=== PATIENT | male | born 1965 | race American Indian/Alaskan Native ===

== ENCOUNTER 2021-12-07 09:52 | Outpatient (CLI) | payer OTHER | END 2021-12-07 09:53 | disposition home or self-care (01) | LOC: CSHMRI 09:52 | PROVIDERS: ATTEND Radiology Radiation Oncology | DX: C61 Malignant neoplasm of prostate (principal) | CPT/HCPCS: 72197 ==

== ENCOUNTER 2022-01-03 11:16 | Outpatient (CLI) | payer OTHER | END 2022-01-03 11:17 | disposition home or self-care (01) | LOC: CSHLAB 11:16 | PROVIDERS: ATTEND Internal Medicine Gastroenterology | DX: Z20.822 Contact with and (suspected) exposure to COVID-19 (principal); Z12.11 Encounter for screening for malignant neoplasm of colon | CPT/HCPCS: U0003; U0005 ==

== ENCOUNTER 2022-01-06 07:54 | Day surgery (SDC) | payer OTHER ==
[2022-01-05 14:47] VITALS: BMI 46.5
[2022-01-06] MEDS ORDERED: Lidocaine 1% MPF 2 ML VIAL ONE (08:52)
[2022-01-06] MEDS ORDERED: PROPOFOL 40 ML ONE (09:54)
[2022-01-06] MEDS ORDERED: Lidocaine 1% PF 5 ML VIAL ONE (09:54)
[2022-01-06] MEDS ORDERED: PHENYLEPHRINE-NS 100 MCG/ML 10 ML SYRINGE ONE (10:08)
[2022-01-06] MEDS ORDERED: PROPOFOL 20 ML ONE ×3 (10:08→10:38)
== END 2022-01-06 11:30 | disposition home or self-care (01) ==
LOC: CSHSDC 07:54
PROVIDERS: ATTEND Internal Medicine Gastroenterology
PROC: 0DBN8ZX Excision of Sigmoid Colon, Via Natural or Artificial Opening Endoscopic, Diagnostic (ICD-10-PCS; principal; 2022-01-06)
DX: Z12.11 Encounter for screening for malignant neoplasm of colon (principal); D12.0 Benign neoplasm of cecum; D12.5 Benign neoplasm of sigmoid colon; K64.9 Unspecified hemorrhoids; I10 Essential (primary) hypertension; E11.9 Type 2 diabetes mellitus without complications; E78.5 Hyperlipidemia, unspecified; C61 Malignant neoplasm of prostate; E66.9 Obesity, unspecified; Z68.42 Body mass index [BMI] 45.0-49.9, adult; Z79.84 Long term (current) use of oral hypoglycemic drugs; Z79.899 Other long term (current) drug therapy
CPT/HCPCS: 88305; J2704